=== PATIENT | male | born 1945 | race Caucasian/White ===

== ENCOUNTER 2020-12-01 16:07 | Emergency (ER) | payer BC, MEDICARE ==
[2020-12-01 17:35] LABS: HEMOGLOBIN 14.5 gm/dl (14.0-17.5); RED BLOOD COUNT 4.84 M/UL (4.20-5.50); WHITE BLOOD COUNT 2.9 K/UL (4.5-11.0)
[2020-12-01 19:18] LABS: BORDETELLA PARAPERTUSSIS Not Detected (Not Detectd); BORDETELLA PERTUSSIS Not Detected (Not Detectd); CHLAMYDIA PNEUMONIAE Not Detected (Not Detectd); CORONAVIRUS HKU1 Not Detected (Not Detectd); CORONAVIRUS NL63 Not Detected (Not Detectd); CORONAVIRUS OC43 Not Detected (Not Detectd); CORONOAVIRUS 229E Not Detected (Not Detectd); HUMAN METAPNEUMOVIRUS Not Detected (Not Detectd); HUMAN RHINOVIRUS/ENTEROVIRUS Not Detected (Not Detectd); INFLUENZA A Not Detected (Not Detectd); INFLUENZA B Not Detected (Not Detectd); MYCOPLASMA PNEUMONIAE Not Detected (Not Detectd); PARAINFLUENZA VIRUS 1 Not Detected (Not Detectd); PARAINFLUENZA VIRUS 2 Not Detected (Not Detectd); PARAINFLUENZA VIRUS 3 Not Detected (Not Detectd); PARAINFLUENZA VIRUS 4 Not Detected (Not Detectd); RESPIRATORY SYNCYTIAL VIRUS Not Detected (Not Detectd)
[2020-12-01 20:36] LABS: SARS-CoV-2 NOT DETECTED (Not Detectd)
[2020-12-01] MEDS ORDERED: VIBRAMYCIN100 MG PO (20:54)
[2020-12-03 15:09] LABS: LYME IGG/IGM AB <0.91 ISR (0.00-0.90)
== END 2020-12-01 21:15 | disposition home or self-care (01) ==
LOC: ER1 16:07
PROVIDERS: Emergency Medicine
DX: S30.861A Insect bite (nonvenomous) of abdominal wall, initial encounter (principal); R50.9 Fever, unspecified; E78.5 Hyperlipidemia, unspecified; Z20.822 Contact with and (suspected) exposure to COVID-19; Z95.1 Presence of aortocoronary bypass graft; Z85.46 Personal history of malignant neoplasm of prostate; W57.XXXA Bitten or stung by nonvenomous insect and other nonvenomous arthropods, initial encounter
CPT/HCPCS: 71045; 80053; 81001; 83605; 83690; 83880; 85025; 85610; 85730; 86618; 87040; 87086; 87633; 93005; 96374; 99284; J0696; Q9967; U0002

== ENCOUNTER 2021-04-05 07:18 | Inpatient (IN) | payer BC, MEDICARE ==
[~2021-04-05] VITALS: Ht 172.7 cm; Wt 78.0 kg
[~2021-04-05 07:18] MED LIST: VIBRAMYCIN100 MG PO
[2021-04-05 07:57] LABS: HEMOGLOBIN 13.6 gm/dl (14.0-17.5); RED BLOOD COUNT 4.47 M/UL (4.20-5.50); WHITE BLOOD COUNT 5.6 K/UL (4.5-11.0)
[2021-04-05 10:24] LABS: BUN/CREATININE RATIO 24 (0-10)
[2021-04-05] MEDS ORDERED: HYDROXYUREA500 MG PO (10:50)
[2021-04-05] MEDS ORDERED: MELOXICAM7.5 MG PO (10:51)
[2021-04-05] MEDS ORDERED: ROPINIROLE HC0.25 MG PO (10:51)
[2021-04-05] MEDS ORDERED: ASPIRIN81 MG PO (10:52)
[2021-04-05] MEDS ORDERED: ZOCOR40 MG PO (10:52)
[2021-04-05] MEDS ORDERED: FLOMAX 0.4 MG0.4 MG PO (10:52)
[2021-04-06 07:21] LABS: HEMOGLOBIN 11.1 gm/dl (14.0-17.5); RED BLOOD COUNT 3.71 M/UL (4.20-5.50); WHITE BLOOD COUNT 7.2 K/UL (4.5-11.0)
[2021-04-06 07:48] LABS: BUN/CREATININE RATIO 19 (0-10)
[2021-04-07 04:54] LABS: HEMOGLOBIN 11.4 gm/dl (14.0-17.5); RED BLOOD COUNT 3.74 M/UL (4.20-5.50)
[2021-04-07 05:15] LABS: BUN/CREATININE RATIO 16 (0-10)
[2021-04-08 05:38] LABS: HEMOGLOBIN 11.5 gm/dl (14.0-17.5); RED BLOOD COUNT 3.79 M/UL (4.20-5.50); WHITE BLOOD COUNT 6.4 K/UL (4.5-11.0)
[2021-04-08 06:22] LABS: BUN/CREATININE RATIO 16 (0-10)
[2021-04-08] MEDS ORDERED: LIDOCAINE PAIN1 EACH TOP (09:05)
[2021-04-08] MEDS ORDERED: OMNICEF 300 MG300 MG PO (09:05)
[2021-04-08] MEDS ORDERED: AZITHROMYCIN500 MG PO (09:05)
== END 2021-04-08 11:16 | disposition home or self-care (01) | DRG 871 ==
LOC: ER1 07:18 → CDU 10:15 → MED SURG 4 14:41
PROVIDERS: Emergency Medicine; Physician Assistant Medical; ADMIT Internal Medicine
DX: A41.9 Sepsis, unspecified organism (principal); G93.41 Metabolic encephalopathy; J18.9 Pneumonia, unspecified organism; E87.2 Acidosis; Z20.822 Contact with and (suspected) exposure to COVID-19; I25.10 Atherosclerotic heart disease of native coronary artery without angina pectoris; I10 Essential (primary) hypertension; Z95.1 Presence of aortocoronary bypass graft; Z85.46 Personal history of malignant neoplasm of prostate; Z79.82 Long term (current) use of aspirin; Z79.01 Long term (current) use of anticoagulants; Z88.8 Allergy status to other drugs, medicaments and biological substances; Z80.9 Family history of malignant neoplasm, unspecified
CPT/HCPCS: 36415; 36600; 70450; 71045; 80053; 80202; 81001; 82803; 82962; 83605; 83735; 85025; 85027; 87040; 87081; 87086; 93005; 94640; 94760; 96374; 96375; 99285; C9113; J0456; J0696; J1650; J3370; J7030; J7050; J7070; U0002